=== PATIENT | female | born 1955 | race Caucasian/White ===

== ENCOUNTER 2019-02-16 17:49 | Emergency (ER) | payer SELFPAY ==
[~2019-02-16] VITALS: Ht 154.9 cm; Wt 68.0 kg
[2019-02-16] MEDS ORDERED: WELLBURTIN (18:02)
[2019-02-16] MEDS ORDERED: ZOLOFT (18:03)
[2019-02-16] MEDS ORDERED: B/P (18:04)
[2019-02-16] MEDS ORDERED: RITALIN (18:05)
[2019-02-16] MEDS ORDERED: NS IV 500 ML 500 ML IV ONE (18:12)
--- NOTE | 2019-02-16 18:28 | ED General ---
General Chief Complaint: General Problems/Pain Stated Complaint: FALL Nursing Triage Note: TO ED PER [facility] EMS WAS CALLED BY SHERIFF MURRELL. PATIENT REPORTS THAT SHE WAS DRIVING FROM [place] [facility] WHEN SHE HAS TO PEE SO SHE STOPPED ALONG THE THE ROAD AND WENT TO A FIELD. SHE FELL ADN CRAWLED BACK TO ROAD. EMS REPORTS SHE WALKED TO AMBULANCE. Nursing Sepsis Screen: No Definite Risk Source of Information: Patient, EMS Exam Limitations: Intoxication History of Present Illness Date Seen by Provider: Feb 16, 2019 Time Seen by Provider: 17:47 Initial Comments Pt [place] ED by EMS [place] [facility]. EMS states her car was facing north at [place] and she had an odor of alcohol, walking like a drunk. They saw a large bottle of GIN 90% empty in the front seat. She said she went into the field to urinate and fell for the 6th time this week. She rates her pain as tolerable and has a large bruise on the right hip from either Thursday or thursday. She knows the time and person but not the place. She thinks she is at [place] in [place]. She also uses ritalin and B/P meds. States she was driving from airport back from visiting family in [place] and driving her car to [place]. When asked where she was when she fell she states the airport. HEr daughter Myles @ [phone] was contacted by police and is on her way here. Allergies and Home Medications Allergies Uncoded Allergies: ANTIHISTAMAINES (Allergy, Unknown, 02/16/19) Patient Home Medication List Home Medication List Reviewed: Yes Review of Systems Review of Systems Constitutional: No chills; dizziness; No fever, No malaise EENTM: No ear discharge, No ear pain Respiratory: No cough, No short of breath Cardiovascular: No chest pain, No edema Gastrointestinal: No abdominal pain, No nausea Genitourinary: No discharge, No dysuria Past Xqbgrtw-Sjtctu-Pmeiwl Hx Patient Social History Alcohol Use: Occasionally Uses Recreational Drug Use: No Smoking Status: Never a Smoker Recent Foreign Travel: No Contact w/Someone Who Travel: No Recent Infectious Disease Expo: No Past Medical History [facility] History: Hysterectomy Physical Exam Vital Signs Vital Signs - First Documented 02/16/19 17:51 Temp 98.0 Pulse 53 Resp 18 B/P (MAP) 134/73 (93) Pulse Ox 95 O2 Delivery Room Air Capillary Refill : Less Than 3 Seconds Height, Weight, BMI Height: 5'1.00" Weight: 150lbs. oz. 68.242103ec; BMI Method:Stated General Appearance: WD/WN, Thin Eyes: Bilateral Eye Normal Inspection, Bilateral Eye PERRL, Bilateral Eye EOMI HEENT: PERRL/EOMI, TMs Normal, Normal ENT Inspection, Pharynx Normal, Moist Mucous Membranes Neck: Full Range of Motion, Normal Inspection Respiratory: Chest Non Tender, Lungs Clear, Normal Breath Sounds, No Accessory Muscle Use, No Respiratory Distress Cardiovascular: Regular Rate, Rhythm, No Edema, Normal Peripheral Pulses Gastrointestinal: Normal Bowel Sounds, Non Tender, Soft Extremity: Other (Ecchymoses and swelling over the right hip without deformity. 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, Other (Oriented times person but not place time or situation) Skin: Normal Color, Warm/Dry, Ecchymosis (r hip) Progress/Results/Core Measures Suspected Sepsis Recent Fever Within 48 Hours: No Infection Criteria Present: None New/Unexplained Altered Menta: No Sepsis Screen: No Definite Risk SIRS Temperature:98.0 Pulse: 53 Respiratory Rate: 18 Laboratory Tests 02/16/19 17:56: White Blood Count 12.5H Blood Pressure 134 /73 Mean: 93 Laboratory Tests 02/16/19 17:30: INR Comment 1.0 02/16/19 17:56: Creatinine 0.79, Platelet Count 421H, Total Bilirubin 0.2 Results/Orders Lab Results Laboratory Tests Test 02/16/19 17:30 02/16/19 17:56 02/16/19 19:04 Range/Units Prothrombin Time 13.2 12.2-14.7 SEC INR Comment 1.0 0.8-1.4 Activated Partial Thromboplast Time 28 24-35 SEC White Blood Count 12.5 H 4.3-11.0 10^3/uL Red Blood Count 3.92 L 4.35-5.85 10^6/uL Hemoglobin 12.9 11.5-16.0 G/DL Hematocrit 40 35-52 % Mean Corpuscular Volume 103 H 80-99 FL Mean Corpuscular Hemoglobin 33 25-34 PG Mean Corpuscular Hemoglobin Concent 32 32-36 G/DL Red Cell Distribution Width 12.0 10.0-14.5 % Platelet Count 421 H 130-400 10^3/uL Mean Platelet Volume 10.8 H 7.4-10.4 FL Neutrophils (%) (Auto) 71 42-75 % Lymphocytes (%) (Auto) 17 12-44 % Monocytes (%) (Auto) 10 0-12 % Eosinophils (%) (Auto) 2 0-10 % Basophils (%) (Auto) 1 0-10 % Neutrophils # (Auto) 8.8 H 1.8-7.8 X 10^3 Lymphocytes # (Auto) 2.1 1.0-4.0 X 10^3 Monocytes # (Auto) 1.2 H 0.0-1.0 X 10^3 Eosinophils # (Auto) 0.3 0.0-0.3 10^3/uL Basophils # (Auto) 0.1 0.0-0.1 10^3/uL Sodium Level 142 135-145 MMOL/L Potassium Level 4.2 3.6-5.0 MMOL/L Chloride Level 104 98-107 MMOL/L Carbon Dioxide Level 28 21-32 MMOL/L Anion Gap 10 5-14 MMOL/L Blood Urea Nitrogen 9 7-18 MG/DL Creatinine 0.79 0.60-1.30 MG/DL Estimat Glomerular Filtration Rate > 60 BUN/Creatinine Ratio 11 Glucose Level 79 70-105 MG/DL Calcium Level 9.7 8.5-10.1 MG/DL Corrected Calcium 9.6 8.5-10.1 MG/DL Magnesium Level 1.9 1.8-2.4 MG/DL Total Bilirubin 0.2 0.1-1.0 MG/DL Aspartate Amino Transf (AST/SGOT) 19 5-34 U/L Alanine Aminotransferase (ALT/SGPT) 11 0-55 U/L Alkaline Phosphatase 66 40-136 U/L Ammonia 46 H 11-32 UMOL/L Total Protein 7.7 6.4-8.2 GM/DL Albumin 4.1 3.2-4.5 GM/DL Serum Alcohol 158 H <10 MG/DL Urine Color YELLOW Urine Clarity CLEAR Urine pH 6 5-9 Urine Specific [place] 1.015 L 1.016-1.022 Urine Protein NEGATIVE NEGATIVE Urine Glucose (UA) NEGATIVE NEGATIVE Urine Ketones NEGATIVE NEGATIVE Urine Nitrite NEGATIVE NEGATIVE Urine Bilirubin NEGATIVE NEGATIVE Urine Urobilinogen NORMAL NORMAL MG/DL Urine Leukocyte Esterase 1+ H NEGATIVE Urine RBC (Auto) NEGATIVE NEGATIVE Urine RBC NONE /HPF Urine WBC 0-2 /HPF Urine Squamous Epithelial Cells 5-10 /HPF Urine Crystals NONE /LPF Urine Bacteria TRACE /HPF Urine Casts PRESENT /LPF Urine Hyaline Casts 5-10 H /LPF Urine Mucus SMALL H /LPF Urine Culture Indicated NO Urine Opiates Screen NEGATIVE NEGATIVE Urine Oxycodone Screen NEGATIVE NEGATIVE Urine Methadone Screen NEGATIVE NEGATIVE Urine Propoxyphene Screen NEGATIVE NEGATIVE Urine Barbiturates Screen NEGATIVE NEGATIVE Ur Tricyclic Antidepressants Screen NEGATIVE NEGATIVE Urine Phencyclidine Screen NEGATIVE NEGATIVE Urine Amphetamines Screen NEGATIVE NEGATIVE Urine Methamphetamines Screen NEGATIVE NEGATIVE Urine Benzodiazepines Screen NEGATIVE NEGATIVE Urine Cocaine Screen NEGATIVE NEGATIVE Urine Cannabinoids Screen NEGATIVE NEGATIVE My Orders Orders - KRYSTYNA,FIDELIA J Chest 1 View, Ap/Pa Only (02/16/19 18:12) Ct Head Wo (02/16/19 18:12) Ed Iv/Invasive Line Start (02/16/19 18:12) Ns Iv 500 Ml (Sodium Chloride 0.9%) (02/16/19 18:12) Alcohol (02/16/19 18:12) Ammonia (02/16/19 18:12) Cbc With Automated Diff (02/16/19 18:12) Comprehensive Metabolic Panel (02/16/19 18:12) Drug Screen Stat (Urine) (02/16/19 18:12) Magnesium (02/16/19 18:12) Ua Culture If Indicated (02/16/19 18:12) Pelvis With Right Hip 2-3views (02/16/19 18:12) Protime With Inr (02/16/19 19:29) Partial Thromboplastin Time (02/16/19 19:29) Ns Iv 1000 Ml (Sodium Chloride 0.9%) (02/16/19 19:45) Medications Given in ED Current Medications Medications Dose Ordered Sig/Rodo Route Start Time Stop Time Status Last Admin Dose Admin Sodium Chloride 500 ml @ 0 mls/hr Q0M ONCE IV 02/16/19 18:12 02/16/19 18:14 DC 02/16/19 18:40 500 MLS/HR Sodium Chloride 1,000 ml @ 100 mls/hr Q10H ONCE IV 02/16/19 19:45 02/17/19 05:44 02/16/19 19:48 100 MLS/HR Vital Signs/I&O 02/16/19 02/16/19 17:51 19:50 Temp 98.0 Pulse 53 65 Resp 18 16 B/P (MAP) 134/73 (93) 92/48 (63) Pulse Ox 95 97 O2 Delivery Room Air Room Air Capillary Refill : Less Than 3 Seconds Blood Pressure Mean: 93 Progress Note : Time: 21:27 Progress Note The patient says she feels much better and is alert and oriented 3. Her daughter is with her. We have offered her an observation stay for further evaluation and repeat ammonia in the morning however the patient has declined and would prefer to stay home. Her daughter will look in on her in the morning and get her set up with family practice in the morning. She rarely sees a automotive maintenance technician because she has a history of hepatitis C over 10 years ago or as a guest or rales because they've been doing scopes for irritable bowel/inflammatory bowel. Plan to give her some thiamine and folate tonight and set her up on lactulose twice a day until she sees primary care. Diagnostic Imaging Diagonstic Imaging: CT Plain Films/CT/US/NM/MRI: head Comments NAME: KOLBY [facility] REC#: [id number] PHYSICIAN: FIDELIA GREENWOOD MD CC: SHAHLA MERCHANT MD; FIDELIA GREENWOOD Page 1 of 1 RADIOLOGY REPORT [facility] [place] CC: SHAHLA MERCHANT MD; FIDELIA GREENWOOD Page 1 of 1 RADIOLOGY REPORT NAME: KOLBY [facility] REC#: [id number] PT STATUS: REG ER : 1955 PHYSICIAN: FIDELIA GREENWOOD MD ADMIT DATE: 02/16/19/ER Signed Date of Exam: 02/16/19 CT HEAD WO PROCEDURE: CT head without contrast. TECHNIQUE: Multiple contiguous axial images were obtained through the brain without the use of intravenous contrast. Auto Exposure Controls were utilized during the CT exam to meet ALARA standards for radiation dose reduction. INDICATION: Frequent falling. FINDINGS: The ventricles are normal in size, shape and position. There are no masses or hemorrhages. There are no extra-axial fluid collections. IMPRESSION: No acute abnormality is seen in the head. Dictated by: Dictated on workstation # [id number] Dict: 02/16/191839 Trans: 02/16/191846 Interpreted by: SHAHLA MERCHANT MD Electronically signed by: SHAHLA MERCHANT MD 02/16/191846 Reviewed: Reviewed by Wi Diagonstic Imaging: Xray Plain Films/CT/US/NM/MRI: chest Comments NAME: KOLBY [facility] REC#: [id number] PHYSICIAN: FIDELIA GREENWOOD MD CC: SHAHLA MERCHANT MD; FIDELIA GREENWOOD Page 1 of 1 RADIOLOGY REPORT [facility] [place] CC: SHAHLA MERCHANT MD; FIDELIA GREENWOOD Page 1 of 1 RADIOLOGY REPORT NAME: KOLBY [facility] REC#: [id number] PT STATUS: REG ER : 1955 PHYSICIAN: FIDELIA GREENWOOD MD ADMIT DATE: 02/16/19/ER Signed Date of Exam: 02/16/19 CHEST 1 VIEW, AP/PA ONLY INDICATION: Hip injury from a fall. EXAMINATION: Portable chest at 6:41 p.m. FINDINGS: Heart size and pulmonary vascularity are normal. Lungs are clear. There are no effusions or pneumothoraces. IMPRESSION: Negative chest. Dictated by: Dictated on workstation # [id number] Dict: 02/16/191851 Trans: 02/16/191853 Interpreted by: SHAHLA MERCHANT MD Electronically signed by: SHAHLA MERCHANT MD 02/16/191853 Reviewed: Reviewed by Wi Diagonstic Imaging: Xray Plain Films/CT/US/NM/MRI: hip Comments NAME: KOLBY [facility] REC#: [id number] PHYSICIAN: FIDELIA GREENWOOD MD CC: STEFANIA CHAVEZ MD; FIDELIA GREENWOOD Page 1 of 1 RADIOLOGY REPORT [facility] [place], [place] CC: STEFANIA CHAVEZ MD; FIDELIA GREENWOOD Page 1 of 1 RADIOLOGY REPORT NAME: KOLBY [facility] REC#: [id number] PT STATUS: REG ER : 1955 PHYSICIAN: FIDELIA GREENWOOD MD ADMIT DATE: 02/16/19/ER Signed Date of Exam: 02/16/19 PELVIS WITH RIGHT HIP 2-3VIEWS CLINICAL INDICATION: Patient is status post fall with right hip pain. EXAM: X-ray of the pelvis, AP view, and x-ray of the right hip, AP and frog-leg views. COMPARISON: None. FINDINGS: There is no acute fracture or dislocation. There are moderately hypertrophic spurs involving the proximal femoral head/neck junction regions bilaterally. There is mild spurring of the acetabular regions. There is enthesopathy of the greater trochanter bilaterally. There is mild sclerosis of the sacroiliac joints. There is degenerative spurs involving the lower lumbar spine. Phleboliths are seen in the pelvis. 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 Dictated by: Dictated on workstation # [id number] Dict: 02/16/19 185 Trans: 02/16/192009 Interpreted by: STEFANIA CHAVEZ MD Electronically signed by: STEFANIA CHAVEZ MD 02/16/192009 Reviewed: Reviewed by Me Departure Impression Primary Impression: Acute on chronic alcoholic liver disease Disposition: 01 HOME, SELF-CARE Condition: Improved Departure-Patient Inst. Decision time for Depature: 21:28 Patient Instructions: Acute Liver Failure (DC) Add. Discharge Instructions: I suspect that liver damage may be contributing to your symptoms today. You need to follow up with your primary care doctor tomorrow morning for further tests. Return to the nearest ER to have problems waking up or other concerning symptoms. Start taking the thiamine and folate daily. Start taking the lactulose twice a day keep your stools loose and drink lots of fluids. Discontinue taking anything with Tylenol and it until told otherwise by your doctor. You need to work on discontinuing your use of alcohol permanently and should follow-up with your primary care doctor for help. When it comes to pain medicines such as tramadol, hydrocodone, oxycodone etc. you should use the absolute least amount possible as infrequently as possible. Avoidance would be best. All discharge instructions reviewed with patient and/or family. Voiced understanding. Scripts Lactulose (Lactulose) 10 Gm/15 Ml Solution 10 GM PO BID PRN PRN for CONSTIPATION-1ST LINE, #60 EA 0 Refills Prov: FIDELIA GREENWOOD 02/16/19 Folic Acid (Folic Acid) 1 Mg Tablet 1 MG PO DAILY for 30 Days, #30 TAB 0 Refills Prov: FIDELIA GREENWOOD 02/16/19 Thiamine HCl (Vitamin B-1) 100 Mg Tablet 100 MG PO DAILY, #30 TAB 0 Refills Prov: FIDELIA GREENWOOD 02/16/19 FIDELIA GREENWOOD Feb 16, 2019 18:28
[2019-02-16 18:31] LABS: BASOPHILS # (AUTO) 0.1 10^3/uL (0.0-0.1); BASOPHILS % (AUTO) 1 % (0-10); EOSINOPHILS # (AUTO) 0.3 10^3/uL (0.0-0.3); EOSINOPHILS % (AUTO) 2 % (0-10); HEMATOCRIT 40 % (35-52); HEMOGLOBIN 12.9 G/DL (11.5-16.0); LYMPHOCYTES # (AUTO) 2.1 X 10^3 (1.0-4.0); LYMPHOCYTES % (AUTO) 17 % (12-44); MEAN CORPUSCULAR HEMOGLOBIN 33 PG (25-34); MEAN CORPUSCULAR HGB CONC 32 G/DL (32-36); MEAN CORPUSCULAR VOLUME 103 FL (80-99); MEAN PLATELET VOLUME 10.8 FL (7.4-10.4); MONOCYTES # (AUTO) 1.2 X 10^3 (0.0-1.0); MONOCYTES % (AUTO) 10 % (0-12); NEUTROPHILS # (AUTO) 8.8 X 10^3 (1.8-7.8); NEUTROPHILS % (AUTO) 71 % (42-75); PLATELET COUNT 421 10^3/uL (130-400); WHITE BLOOD COUNT 12.5 10^3/uL (4.3-11.0)
[2019-02-16 18:43] LABS: ALANINE AMINOTRANSFERASE 11 U/L (0-55); ALBUMIN 4.1 GM/DL (3.2-4.5); ALKALINE PHOSPHATASE 66 U/L (40-136); AMMONIA 46 UMOL/L (11-32); BILIRUBIN,TOTAL 0.2 MG/DL (0.1-1.0); BUN/CREATININE RATIO 11; CALCIUM 9.7 MG/DL (8.5-10.1); CARBON DIOXIDE 28 MMOL/L (21-32); CHLORIDE 104 MMOL/L (98-107); CREATININE SERUM 0.79 MG/DL (0.60-1.30); GFR ESTIMATED > 60; GLUCOSE 79 MG/DL (70-105); MAGNESIUM 1.9 MG/DL (1.8-2.4); POTASSIUM 4.2 MMOL/L (3.6-5.0); SODIUM 142 MMOL/L (135-145); TOTAL PROTEIN 7.7 GM/DL (6.4-8.2)
--- NOTE | 2019-02-16 18:46 | Diagnostic Imaging Report ---
PROCEDURE: CT head without contrast. TECHNIQUE: Multiple contiguous axial images were obtained through the brain without the use of intravenous contrast. Auto Exposure Controls were utilized during the CT exam to meet ALARA standards for radiation dose reduction. INDICATION: Frequent falling. FINDINGS: The ventricles are normal in size, shape and position. There are no masses or hemorrhages. There are no extra-axial fluid collections. IMPRESSION: No acute abnormality is seen in the head. Dictated by: Dictated on workstation # [id number]
--- NOTE | 2019-02-16 18:54 | Diagnostic Imaging Report ---
INDICATION: Hip injury from a fall. EXAMINATION: Portable chest at 6:41 p.m. FINDINGS: Heart size and pulmonary vascularity are normal. Lungs are clear. There are no effusions or pneumothoraces. IMPRESSION: Negative chest. Dictated by: Dictated on workstation # [id number]
--- NOTE | 2019-02-16 18:56 | Diagnostic Imaging Report ---
CLINICAL INDICATION: Patient is status post fall with right hip pain. EXAM: X-ray of the pelvis, AP view, and x-ray of the right hip, AP and frog-leg views. COMPARISON: None. FINDINGS: There is no acute fracture or dislocation. There are moderately hypertrophic spurs involving the proximal femoral head/neck junction regions bilaterally. There is mild spurring of the acetabular regions. There is enthesopathy of the greater trochanter bilaterally. There is mild sclerosis of the sacroiliac joints. There is degenerative spurs involving the lower lumbar spine. Phleboliths are seen in the pelvis. 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 Dictated by: Dictated on workstation # [id number]
[2019-02-16 19:14] LABS: BILIRUBIN,URINE NEGATIVE (NEGATIVE); CLARITY,URINE CLEAR; COLOR,URINE YELLOW; GLUCOSE, URINE (UA) NEGATIVE (NEGATIVE); KETONES,URINE NEGATIVE (NEGATIVE); LEUKOCYTE ESTERASE ,URINE 1+ (NEGATIVE); NITRITE,URINE NEGATIVE (NEGATIVE); PH,URINE 6 (5-9); PROTEIN,URINE NEGATIVE (NEGATIVE); UROBILINOGEN,URINE NORMAL (NORMAL)
[2019-02-16 19:32] LABS: BACTERIA,URINE TRACE /HPF; WBC,URINE 0-2 /HPF
[2019-02-16 19:33] LABS: AMPHETAMINE SCREEN, URINE NEGATIVE (NEGATIVE); BARBITURATE SCREEN URINE NEGATIVE (NEGATIVE); BENZODIAZEPINES SCREEN URINE NEGATIVE (NEGATIVE); CANNABINOID SCREEN, URINE NEGATIVE (NEGATIVE); COCAINE SCREEN URINE NEGATIVE (NEGATIVE); METHADONE STAT NEGATIVE (NEGATIVE); METHAMPHETAMINE SCREEN URINE S NEGATIVE (NEGATIVE); OPIATE SCREEN URINE NEGATIVE (NEGATIVE); OXYCODONE STAT NEGATIVE (NEGATIVE); PROPOXYPHENE STAT NEGATIVE (NEGATIVE); TRICYCLIC ANTIDEPRESSANTS SCRE NEGATIVE (NEGATIVE)
[2019-02-16 19:44] LABS: PROTHROMBIN TIME PATIENT 13.2 SEC (12.2-14.7)
[2019-02-16] MEDS ORDERED: NS IV 1000 ML 1,000 ML IV ONE (19:45)
[2019-02-16 19:50] VITALS: BP 92/48
[2019-02-16] MEDS ORDERED: THIA100T80 PO (21:33)
[2019-02-16] MEDS ORDERED: LACT10SO PO (21:33)
[2019-02-16] MEDS ORDERED: FOLI1TAB24 PO (21:33)
[2019-02-16] MEDS ORDERED: THIAMINE 100 MG (VITAMIN B-1) TAB PO ONE (21:45)
[2019-02-16] MEDS ORDERED: FOLIC ACID 1 MG TAB PO ONE (21:45)
[2019-02-16 22:05] VITALS: BP 97/44
== END 2019-02-16 22:07 | disposition home or self-care (01) ==
LOC: ER 17:51
DX: K70.10 Alcoholic hepatitis without ascites (principal); Z88.8 Allergy status to other drugs, medicaments and biological substances
CPT/HCPCS: 36415; 70450; 71045; 80053; 80306; 80320; 81000; 82140; 83735; 85025; 85610; 85730; 96360